=== PATIENT | male | born 1950 | race Caucasian/White ===

== ENCOUNTER → 2018-05-24 | Outpatient (CLI) | payer MEDICARE, OTHER | LOC: M.LAB 12:42 → M.CT 14:00 | PROVIDERS: Internal Medicine | DX: I77.811 Abdominal aortic ectasia (principal); N28.1 Cyst of kidney, acquired; K57.30 Diverticulosis of large intestine without perforation or abscess without bleeding; N20.0 Calculus of kidney; K76.0 Fatty (change of) liver, not elsewhere classified; N40.1 Benign prostatic hyperplasia with lower urinary tract symptoms; K76.89 Other specified diseases of liver; R91.8 Other nonspecific abnormal finding of lung field ==